=== PATIENT | female | born 1950 ===

== ENCOUNTER 2017-12-09 09:15 | Inpatient (IN) | payer OTHER ==
[~2017-12-09] VITALS: Ht 165.1 cm; Wt 83.0 kg
[2017-12-09] MEDS ORDERED: METFORMIN HCL500 MG PO (12:11)
[2017-12-09] MEDS ORDERED: [UNRECOGNIZED DRUG - OTHER] PO (12:12)
[2017-12-09] MEDS ORDERED: VERAPAMIL ER120 MG PO (12:12)
[2017-12-09] MEDS ORDERED: CYMBALTA20 MG PO (12:13)
[2017-12-09] MEDS ORDERED: SINGULAIR10 MG PO (12:13)
[2017-12-09] MEDS ORDERED: SYMBICORT 16010.2 GM IH (12:14)
[2017-12-09] MEDS ORDERED: ZANTAC300 MG PO (12:14)
[2017-12-09] MEDS ORDERED: SYNTHROID50 MCG PO (12:14)
[2017-12-16] MEDS ORDERED: DOCUSATE SODIU100 MG PO (09:38)
[2017-12-16] MEDS ORDERED: GABAPENTIN800 MG PO (09:38)
[2017-12-16] MEDS ORDERED: CIPROFLOXACIN750 MG PO (09:39)
[2017-12-16] MEDS ORDERED: PERCOCET 5-3251 EACH PO (09:43)
[2017-12-16] MEDS ORDERED: CLONAZEPAM1 MG PO (09:44)
[2017-12-16] MEDS ORDERED: ACETAMINOPHEN-1 EAC2 PO (12:16)
== END 2017-12-16 16:50 | DRG 455 ==
LOC: PED 12-15 05:19 → O/R 12-15 05:19 → SURH 12-15 07:00 → PED 12-15 10:36
PROVIDERS: Orthopaedic Surgery Orthopaedic Surgery of the Spine
PROC: 0SG0071 Fusion of Lumbar Vertebral Joint with Autologous Tissue Substitute, Posterior Approach, Posterior Column, Open Approach (ICD-10-PCS; 2017-12-15)
PROC: 0ST20ZZ Resection of Lumbar Vertebral Disc, Open Approach (ICD-10-PCS; 2017-12-15)
PROC: 0SG00AJ Fusion of Lumbar Vertebral Joint with Interbody Fusion Device, Posterior Approach, Anterior Column, Open Approach (ICD-10-PCS; 2017-12-15)
PROC: 07DS3ZZ Extraction of Vertebral Bone Marrow, Percutaneous Approach (ICD-10-PCS; 2017-12-15)
PROC: 0SG00A0 Fusion of Lumbar Vertebral Joint with Interbody Fusion Device, Anterior Approach, Anterior Column, Open Approach (ICD-10-PCS; principal; 2017-12-15 07:00)
DX: M48.061 Spinal stenosis, lumbar region without neurogenic claudication (principal); M51.16 Intervertebral disc disorders with radiculopathy, lumbar region; M43.16 Spondylolisthesis, lumbar region; I10 Essential (primary) hypertension; E11.9 Type 2 diabetes mellitus without complications; E03.8 Other specified hypothyroidism